=== PATIENT | female | born 1965 | race Caucasian/White ===

== ENCOUNTER → 2017-01-10 | Outpatient (CLI) | payer BC ==
[2017-01-10 18:35] LABS: ALT 35 U/L (9-52); AST 22 U/L (14-36); Alkaline Phosphatase 59 U/L (38-126); Anion Gap 9 mmol/L; Blood Urea Nitrogen 10 mg/dL (7-17); Calcium 9.7 mg/dL (8.4-10.2); Carbon Dioxide 27 mmol/L (22-30); Chloride 108 mmol/L (98-107); Cholesterol 191 mg/dL (<200); Glucose 85 mg/dL (74-99); HDL Cholesterol 59 mg/dL (40-60); Non-African American GFR(MDRD) >60 (>60 ml/min/1.73 sqM); Potassium 5.3 mmol/L (3.5-5.1); Sodium 144 mmol/L (137-145); Total Bilirubin 0.4 mg/dL (0.2-1.3); Total Protein 7.2 g/dL (6.3-8.2)
[2017-01-10 18:58] LABS: Basophils # (A) 0.1 k/uL (0-0.2); Basophils % (A) 1 %; CH 30.1; CHCM 33.1; Eosinophils # (A) 0.2 k/uL (0-0.7); Eosinophils % (A) 3 %; HCT 44.4 % (34.0-46.0); HGB 14.6 gm/dL (11.4-16.0); Luc # (Auto) 0.26; Luc % (Auto) 3; Lymphocytes # (A) 3.3 k/uL (1.0-4.8); Lymphocytes % (A) 43 %; MCHC 32.8 g/dL (31.0-37.0); MCV 91.4 fL (80.0-100.0); Mean Platelet Volume 8.7; Monocytes # (A) 0.7 k/uL (0-1.0); Monocytes % (A) 9 %; Neutrophils # (A) 3.2 k/uL (1.3-7.7); Neutrophils % (A) 41 %; RBC 4.85 m/uL (3.80-5.40); WBC 7.7 k/uL (3.8-10.6); WBC (Perox) 7.78
== END | disposition home or self-care (01) ==
LOC: MMGSC 11:35
PROVIDERS: ATTEND Family Medicine
DX: Z00.00 Encounter for general adult medical examination without abnormal findings (principal)
CPT/HCPCS: 36415; 80053; 80061; 84439; 84443; 85025

== ENCOUNTER → 2017-03-24 | Outpatient (CLI) | payer BC ==
[2017-03-24 18:42] LABS: Potassium 4.5 mmol/L (3.5-5.1)
== END | disposition home or self-care (01) ==
LOC: MMGSC 15:44
PROVIDERS: ATTEND Family Medicine
DX: E87.5 Hyperkalemia (principal)
CPT/HCPCS: 36415; 80051

== ENCOUNTER → 2017-04-20 | Outpatient (CLI) | payer BC | END | disposition home or self-care (01) | LOC: MMGSC 15:35 | PROVIDERS: ATTEND Family Medicine | DX: N39.0 Urinary tract infection, site not specified (principal) | CPT/HCPCS: 87086 ==

== ENCOUNTER 2017-07-27 10:35 | Emergency (ER) | payer BC ==
[2017-07-27] MEDS ORDERED: KETOROLAC 30 MG/ML 1 ML VIAL IVP STA (11:04)
[2017-07-27] MEDS ORDERED: ORPHENADRINE 30 MG/ML 2 ML VIAL IVP STA (11:05)
--- NOTE | 2017-07-27 11:08 | ED ---
Headache HPI - General Chief Complaint: Headache Stated Complaint: Headache Time Seen by Provider: 07/27/17 10:49 Mode of arrival: ambulatory Limitations: no limitations - History of Present Illness Initial Comments: This is a 52-year-old female who states she had the onset 4 days ago of intermittent episodes of neck pain headache and dizziness. She believes it may be starting her neck area. 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 She was placed on Antivert yesterday but has not gotten relief thus far. No fevers chills nausea vomiting sweats no trauma no chest pain dyspnea focal weakness. No other modifying factors at this time. She states the pain is anywhere between 8-11/30. MD Complaint: headache - Related Data Home Medications Medication Instructions Recorded Confirmed ALPRAZolam [Xanax] 0.5 mg PO HS 07/27/17 07/27/17 Atorvastatin [Lipitor] 10 mg PO DAILY 07/27/17 07/27/17 Ibuprofen [Motrin] 800 mg PO Q6H PRN 07/27/17 07/27/17 Levothyroxine Sodium [Synthroid] 75 mcg PO DAILY 07/27/17 07/27/17 Loratadine [Claritin] 10 mg PO DAILY 07/27/17 07/27/17 Meclizine [Antivert] 25 mg PO TID PRN 07/27/17 07/27/17 Venlafaxine HCl [Effexor XR] 150 mg PO HS 07/27/17 07/27/17 Previous Rx's Medication Instructions Recorded Cyclobenzaprine [Flexeril] 10 mg PO TID #14 tab 07/27/17 Ibuprofen 800 mg PO Q6HR PRN #20 tablet 07/27/17 methylPREDNISolone Dose Pack 4 mg PO DIRECTED #21 package 07/27/17 [Medrol Dose Pack] Allergies Allergy/AdvReac Type Severity Reaction Status Date / Time No Known Allergies Allergy Verified 07/27/17 11:02 Review of Systems ROS Statement: Those systems with pertinent positive or pertinent negative responses have been documented in the HPI. ROS Other: All systems not noted in ROS Statement are negative. Past Medical History Past Medical History: No Reported History Additional Past Surgical History / Comment(s): oopherectomy Past Psychological History: No Psychological Hx Reported Smoking Status: Never smoker Past Alcohol Use History: Rare Past Drug Use History: None Reported, Marijuana General Exam - General Exam Comments Initial Comments: This is a well-developed well-nourished awake alert oriented 3 female Limitations: no limitations General appearance: alert, in no apparent distress Head exam: Present: atraumatic, normocephalic, normal inspection Eye exam: Present: normal appearance, PERRL, EOMI. Absent: scleral icterus, conjunctival injection, periorbital swelling ENT exam: Present: normal exam, mucous membranes moist Neck exam: Present: normal inspection, tenderness (Paraspinous muscle tenderness and upper medial trapezius tenderness to palpation bilaterally no spinous process tenderness this tenderness does extend up into the occipital scalp.), full ROM. Absent: meningismus, lymphadenopathy Respiratory exam: Present: normal lung sounds bilaterally. Absent: respiratory distress, wheezes, rales, rhonchi, stridor Cardiovascular Exam: Present: regular rate, normal rhythm, normal heart sounds. Absent: systolic murmur, diastolic murmur, rubs, gallop, clicks GI/Abdominal exam: Absent: distended, tenderness, guarding, rebound, rigid Extremities exam: Present: normal inspection, full ROM, normal capillary refill. Absent: tenderness, pedal edema, joint swelling, calf tenderness Back exam: Present: normal inspection Neurological exam: Present: alert, oriented X3, CN II-XII intact Psychiatric exam: Present: normal affect, normal mood Skin exam: Present: warm, dry, intact, normal color. Absent: rash Course Vital Signs 07/27/17 10:40 Temperature 98.5 F Pulse Rate 63 Respiratory 18 Rate Blood Pressure 130/80 O2 Sat by Pulse 98 Oximetry Medical Decision Making - Medical Decision Making Patient showing much improved after the medication was given the patient will be discharged she is to be off work the rest of this week I did write a note to that effect be placed on anti-inflammatories and muscle relaxers I did recommend she follow-up with her doctor the presentation is consistent with cervical pain as etiology of the presenting symptoms. She will continue however with the Antivert. - Lab Data Result diagrams: 07/27/17 11:30 07/27/17 11:30 Lab Results 07/27/17 07/27/17 Range/Units 11:30 11:30 WBC 8.6 (3.8-10.6) k/uL RBC 4.75 (3.80-5.40) m/uL Hgb 14.8 (11.4-16.0) gm/dL Hct 41.7 (34.0-46.0) % MCV 87.8 (80.0-100.0) fL MCH 31.2 (25.0-35.0) pg MCHC 35.5 (31.0-37.0) g/dL RDW 14.1 (11.5-15.5) % Plt Count 265 (150-450) k/uL Neutrophils % 48 % Lymphocytes % 38 % Monocytes % 7 % Eosinophils % 3 % Basophils % 1 % Neutrophils # 4.1 (1.3-7.7) k/uL Lymphocytes # 3.3 (1.0-4.8) k/uL Monocytes # 0.6 (0-1.0) k/uL Eosinophils # 0.2 (0-0.7) k/uL Basophils # 0.1 (0-0.2) k/uL Sodium 142 (137-145) mmol/L Potassium 4.8 (3.5-5.1) mmol/L Chloride 104 (98-107) mmol/L Carbon Dioxide 29 (22-30) mmol/L Anion Gap 9 mmol/L BUN 15 (7-17) mg/dL Creatinine 0.60 (0.52-1.04) mg/dL Est GFR (CKD-EPI)AfAm >90 (>60 ml/min/1.73 sqM) Est GFR (CKD-EPI)NonAf >90 (>60 ml/min/1.73 sqM) Glucose 89 (74-99) mg/dL Calcium 9.5 (8.4-10.2) mg/dL Magnesium 1.8 (1.6-2.3) mg/dL Total Bilirubin 0.3 (0.2-1.3) mg/dL AST 20 (14-36) U/L ALT 29 (9-52) U/L Alkaline Phosphatase 48 (38-126) U/L Total Protein 6.8 (6.3-8.2) g/dL Albumin 4.3 (3.5-5.0) g/dL - Radiology Data Radiology results: report reviewed (I did review the imaging and reports chest x -rays are unremarkable cervical spine x-ray shows no acute findings or is evidence of degenerative changes in the lower cervical spine.), image reviewed Disposition Clinical Impression: Cervical pain (neck), Vertigo, Cephalgia Disposition: HOME SELF-CARE Condition: Good Instructions: Acute Headache (ED), Neck Pain (ED), Vertigo (ED) Prescriptions: Cyclobenzaprine [Flexeril] 10 mg PO TID #14 tab Ibuprofen 800 mg PO Q6HR PRN #20 tablet PRN Reason: Pain methylPREDNISolone Dose Pack [Medrol Dose Pack] 4 mg PO DIRECTED #21 package Is patient prescribed a controlled substance at d/c from ED?: No Referrals: Anca Costa MD [Primary Care Provider] - 1-2 days
[2017-07-27 11:42] LABS: Basophils # (A) 0.1 k/uL (0-0.2); Basophils % (A) 1 %; Eosinophils # (A) 0.2 k/uL (0-0.7); Eosinophils % (A) 3 %; HCT 41.7 % (34.0-46.0); HGB 14.8 gm/dL (11.4-16.0); Lymphocytes # (A) 3.3 k/uL (1.0-4.8); Lymphocytes % (A) 38 %; MCH 31.2 pg (25.0-35.0); MCHC 35.5 g/dL (31.0-37.0); MCV 87.8 fL (80.0-100.0); Mean Platelet Volume 6.8; Monocytes # (A) 0.6 k/uL (0-1.0); Monocytes % (A) 7 %; Neutrophils # (A) 4.1 k/uL (1.3-7.7); Neutrophils % (A) 48 %; Platelet Count 265 k/uL (150-450); RBC 4.75 m/uL (3.80-5.40); RDW 14.1 % (11.5-15.5); WBC 8.6 k/uL (3.8-10.6)
[2017-07-27 11:52] LABS: ALT 29 U/L (9-52); AST 20 U/L (14-36); Albumin 4.3 g/dL (3.5-5.0); Alkaline Phosphatase 48 U/L (38-126); Anion Gap 9 mmol/L; Blood Urea Nitrogen 15 mg/dL (7-17); Calcium 9.5 mg/dL (8.4-10.2); Carbon Dioxide 29 mmol/L (22-30); Chloride 104 mmol/L (98-107); Glucose 89 mg/dL (74-99); Magnesium 1.8 mg/dL (1.6-2.3); Potassium 4.8 mmol/L (3.5-5.1); Sodium 142 mmol/L (137-145); Total Bilirubin 0.3 mg/dL (0.2-1.3); Total Protein 6.8 g/dL (6.3-8.2)
--- NOTE | 2017-07-27 12:11 | XR ---
EXAMINATION TYPE: XR chest 2V DATE OF EXAM: 07/27/2017 COMPARISON: NONE HISTORY: Shortness of breath TECHNIQUE: Frontal and lateral views of the chest are obtained. FINDINGS: Scattered senescent parenchymal changes noted. No evidence for infiltrate. No evidence for atelectasis. Heart size is stable. Mediastinal structures are stable and grossly unremarkable. No evidence for hilar prominence. Degenerative changes dorsal spine. Healed fracture left clavicle. IMPRESSION: 1. No evidence for acute pulmonary disease.
--- NOTE | 2017-07-27 12:12 | XR ---
EXAMINATION TYPE: XR cervical spine comp DATE OF EXAM: 07/27/2017 CLINICAL HISTORY: pain COMPARISON: NONE TECHNIQUE: Frontal, lateral, oblique, swimmers, and open mouth view of the cervical spine are obtaine d. FINDINGS: The cervical spine is visualized in its entirety from C1 thru the top of T1 level. It is s atisfactory in alignment without evidence of acute fracture or dislocation. The pre-vertebral soft t issue appears within normal limits. Moderate degenerative disc space narrowing and spondylosis extend ing from C4-5 through C6-7. The C1-C2 articulation is unremarkable on the open mouth view. Mild gregory inal encroachment identified at C4-5 bilaterally. IMPRESSION: No acute fracture or dislocation is seen in the cervical spine.ICD 10 NO FRACTURE, INITI AL EVALUATION
[2017-07-27 13:06] VITALS: BP 118/62; PULSE 64; RESP 16
[2017-07-27 13:08] VITALS: TEMP 98
== END 2017-07-27 13:08 | disposition home or self-care (01) ==
LOC: EC 10:35
DX: M54.2 Cervicalgia (principal); R51 Headache; R42 Dizziness and giddiness; Z79.899 Other long term (current) drug therapy
CPT/HCPCS: 36415; 80053; 83735; 85025; 72050; 71046; 99284; 96374; 96375; J2360; J1885